=== PATIENT | female | born 2000 | race Two or more races ===

== ENCOUNTER 2025-03-31 19:15 | Emergency (ER) | payer MEDICAID, OTHER ==
[~2025-03-31] VITALS: Ht 165.1 cm; Wt 61.2 kg
[2025-03-31 19:35] VITALS: BP 119/70; TEMP 98.5; O2SAT 97
[2025-03-31 19:55] LABS: APPEARANCE,URINE CLEAR (CLEAR); BLOOD, URINE TRACE-INTA Ery/uL (NEGATIVE); LEUKOCYTE ESTERASE ,URINE 3+ (NEGATIVE); NITRITE, URINE NEGATIVE (NEGATIVE); UGLUCOSE NEGATIVE (NEGATIVE)
[2025-03-31 20:05] LABS: SQUAMOUS EPITHELIAL CELL,UR Moderate /HPF (None Seen)
[2025-03-31 20:07] LABS: ADD URINE CULTURE YES
[2025-03-31] MEDS ORDERED: NITR100C6 PO (20:41)
== END 2025-03-31 20:48 | disposition home or self-care (01) ==
LOC: ER 19:17
DX: N39.0 Urinary tract infection, site not specified (principal); N89.8 Other specified noninflammatory disorders of vagina; N94.10 Unspecified dyspareunia; Z60.2 Problems related to living alone
CPT/HCPCS: 81001; 87086-TC